=== PATIENT | female | born 1940 | race Caucasian/White ===

== ENCOUNTER 2018-01-14 10:25 | Emergency (ER) | payer MEDICARE, OTHER ==
--- NOTE | 2018-01-14 11:09 | CR ---
Clinical history: 77-year-old female chest pain Interpretation: Poor inspiratory effort morbidly obese female crowds and accentuates the lung marking s, particularly left base (atelectasis or underlying infiltrate). AP portable chest film otherwise unremarkable i.e. normal cardiac silhouette without cephalization of vascular flow, signs of alveolar edema or dependent pleural effusion. No lung mass, hilar lymphadenopathy or other focal lobar consolidation.
--- NOTE | 2018-01-14 11:10 | EDM.PDOC ---
ED HPI GENERAL MEDICAL PROBLEM - General Stated Complaint: CHEST PAIN Time Seen by Provider: 01/14/18 10:45 Source of Information: Reports: Patient History Limitations: Reports: No Limitations - History of Present Illness INITIAL COMMENTS - FREE TEXT/NARRATIVE: This 77 yo female patient reports to the ED via [facility] due to chest pain. The patient reports her symptoms started this morning at the time she woke up (0715) . The patient reports she has a burning pain that starts in the middle of her chest, goes to her back and up into her neck. The patient reports no similar symptoms in the past. The patient reports she has been evaluated several times for swallowing problems and is on an acid reducing medication that she takes daily. The patient reports that she did attempt to eat breakfast this morning, but had a difficult time eating and drinking this morning. Onset: Today Onset Date: 01/14/18 Onset Time: 07:15 Duration: Constant Location: Reports: Chest Quality: Reports: Ache, Burning Severity: Moderate Improves with: Reports: Other (sitting up) Worsens with: Reports: Other (lying down) Associated Symptoms: Reports: Chest Pain Epigastric Pain Score (Numeric/FACES): 7 - Related Data Allergies Allergy/AdvReac Type Severity Reaction Status Date / Time Sulfa (Sulfonamide Allergy Rash Verified 01/14/18 10:46 Antibiotics) Home Meds: Home Meds Budesonide [Budesonide EC] 3 mg PO DAILY 01/14/18 [History] Calcium Carbonate [Calcium] 1,200 mg PO DAILY 01/14/18 [History] Chrom Gita/Brindal Baum [Garcinia Cambogia Tablet] 2 tab PO DAILY 01/14/18 [ History] Furosemide [Lasix] 10 mg PO BID 01/14/18 [History] Inulin/Chromium Picolinate [Fiber Gummies] 5 mg PO DAILY 01/14/18 [History] Lisinopril 30 mg PO DAILY 01/14/18 [History] Loperamide [Imodium] 4 mg PO DAILY 01/14/18 [History] Magnesium 400 mg PO DAILY 01/14/18 [History] Omeprazole 20 mg PO BIDAC 01/14/18 [History] Potassium 99 mg PO DAILY 01/14/18 [History] amLODIPine [Norvasc] 5 mg PO DAILY 01/14/18 [History] atorvaSTATin [Lipitor] 40 mg PO BEDTIME 01/14/18 [History] predniSONE [Prednisone] 10 mg PO DAILY 01/14/18 [History] ED ROS GENERAL - Review of Systems Review Of Systems: ROS reveals no pertinent complaints other than HPI. ED EXAM, GENERAL - Physical Exam Exam: See Below Exam Limited By: No Limitations General Appearance: Alert, WD/WN, Moderate Distress Eye Exam: Bilateral Eye: EOMI, Normal Inspection, PERRL Ears: Normal External Exam, Normal Canal, Hearing Grossly Normal, Normal TMs Nose: Normal Inspection, Normal Mucosa, No Blood Throat/Mouth: Normal Inspection, Normal Lips, Normal Teeth, Normal Gums, Normal Oropharynx, Normal Voice, No Airway Compromise Head: Atraumatic, Normocephalic Neck: Normal Inspection Respiratory/Chest: No Respiratory Distress, Lungs Clear, Normal Breath Sounds, No Accessory Muscle Use, Chest Non-Tender Cardiovascular: Normal Peripheral Pulses, Regular Rate, Rhythm, No Gallop, No JVD, No Murmur, No Rub GI/Abdominal: Normal Bowel Sounds, Soft, Non-Tender, No Organomegaly, No Distention, No Abnormal Bruit, No Mass, Pelvis Stable (Female) Exam: Deferred Rectal (Female) Exam: Deferred Back Exam: Other (diffuse posterior neck pain ) Extremities: Normal Range of Motion, Non-Tender, Normal Capillary Refill, Pedal Edema (2+ bilateral) Neurological: Alert, CN II-XII Intact, Normal Cognition Psychiatric: Normal Affect, Normal Mood Skin Exam: Warm, Dry, Intact, Normal Color, No Rash Lymphatic: No Adenopathy Course - Vital Signs Last Recorded V/S: Last Vital Signs Temp 36.8 C 01/14/18 10:38 Pulse 82 01/14/18 10:38 Resp 18 01/14/18 10:38 BP 135/52 L 01/14/18 11:17 Pulse Ox 97 01/14/18 10:38 - Orders/Labs/Meds Orders: Active Orders 24 hr Category Date Time Status EKG Documentation Completion [RC] URGENT Care 01/14/18 10:26 Active UA W/MICROSCOPIC [URIN] Stat Lab 01/14/18 12:12 Ordered Labs: Laboratory Tests 01/14/18 01/14/18 01/14/18 Range/Units 10:47 10:47 10:47 WBC 19.4 H (5.0-10.0) 10^3/uL RBC 4.15 L (4.2-5.4) 10^6/uL Hgb 10.6 L (12.0-16.0) g/dL Hct 35.4 L (37.0-47.0) % MCV 85.3 (80-100) fL MCH 25.5 L (27.0-34.0) pg MCHC 29.9 L (33.0-35.0) g/dL Plt Count 283 (150-450) 10^3/uL Neut % (Auto) 70.1 (42.2-75.2) % Lymph % (Auto) 16.3 L (20.5-50.1) % [place] % (Auto) 12.0 H (2-8) % Eos % (Auto) 1.2 (1.0-3.0) % Baso % (Auto) 0.4 (0.0-1.0) % Add Manual Diff Yes Neutrophils % (Manual) 73 (42-75) % Band Neutrophils % 1 % Lymphocytes % (Manual) 20 (20-50) % Monocytes % (Manual) 6 (2-8) % PT (9.0-12.0) SEC INR (0.9-1.2) D-Dimer, Quantitative (0-400) ng/mL Sodium 141 (135-145) mmol/L Potassium 3.1 L (3.6-5.0) mmol/L Chloride 104 (101-111) mmol/L Carbon Dioxide 28.0 (21.0-31.0) mmol/L Anion Gap 12.1 BUN 24 H (7-18) mg/dL Creatinine 1.4 H (0.6-1.3) mg/dL Est Cr Clr Drug Dosing 24.94 mL/min Estimated GFR (MDRD) 37 BUN/Creatinine Ratio 17.14 Glucose 120 H (74-105) mg/dL Calcium 8.5 (8.4-10.2) mg/dl Total Bilirubin 0.8 (0.2-1.0) mg/dL AST 14 (10-42) IU/L ALT 11 (10-60) IU/L Alkaline Phosphatase 37 L (42-121) IU/L Creatine Kinase 49 (26-174) IU/L Creatine Kinase Index 3.7 H (0-2.4) % CK-MB (CK-2) 1.80 (0.4-4.7) ng/mL Troponin I < 0.02 (0.00-0.02) ng/ml Total Protein 6.6 L (6.7-8.2) g/dl Albumin 3.7 (3.2-5.5) g/dl Globulin 2.9 Albumin/Globulin Ratio 1.28 Urine Color (YELLOW) Urine Appearance (CLEAR) Urine pH (5.0-9.0) Ur Specific [place] (1.005-1.030) Urine Protein (NEGATIVE) Urine Glucose (UA) (NEGATIVE) Urine Ketones (NEGATIVE) Urine Occult Blood (NEGATIVE) Urine Nitrite (NEGATIVE) Urine Bilirubin (NEGATIVE) Urine Urobilinogen (0.2-1.0) mg/dL Ur Leukocyte Esterase (NEGATIVE) Urine RBC /HPF Urine WBC (0-5/HPF) /HPF Ur Epithelial Cells /HPF Urine Bacteria (0-FEW/HPF) /HPF Urine Mucus /LPF 01/14/18 01/14/18 Range/Units 10:47 12:12 WBC (5.0-10.0) 10^3/uL RBC (4.2-5.4) 10^6/uL Hgb (12.0-16.0) g/dL Hct (37.0-47.0) % MCV (80-100) fL MCH (27.0-34.0) pg MCHC (33.0-35.0) g/dL Plt Count (150-450) 10^3/uL Neut % (Auto) (42.2-75.2) % Lymph % (Auto) (20.5-50.1) % [place] % (Auto) (2-8) % Eos % (Auto) (1.0-3.0) % Baso % (Auto) (0.0-1.0) % Add Manual Diff Neutrophils % (Manual) (42-75) % Band Neutrophils % % Lymphocytes % (Manual) (20-50) % Monocytes % (Manual) (2-8) % PT 9.2 (9.0-12.0) SEC INR 0.9 (0.9-1.2) D-Dimer, Quantitative 455 H (0-400) ng/mL Sodium (135-145) mmol/L Potassium (3.6-5.0) mmol/L Chloride (101-111) mmol/L Carbon Dioxide (21.0-31.0) mmol/L Anion Gap BUN (7-18) mg/dL Creatinine (0.6-1.3) mg/dL Est Cr Clr Drug Dosing mL/min Estimated GFR (MDRD) BUN/Creatinine Ratio Glucose (74-105) mg/dL Calcium (8.4-10.2) mg/dl Total Bilirubin (0.2-1.0) mg/dL AST (10-42) IU/L ALT (10-60) IU/L Alkaline Phosphatase (42-121) IU/L Creatine Kinase (26-174) IU/L Creatine Kinase Index (0-2.4) % CK-MB (CK-2) (0.4-4.7) ng/mL Troponin I (0.00-0.02) ng/ml Total Protein (6.7-8.2) g/dl Albumin (3.2-5.5) g/dl Globulin Albumin/Globulin Ratio Urine Color Yellow (YELLOW) Urine Appearance Clear (CLEAR) Urine pH 6.0 (5.0-9.0) Ur Specific [place] 1.010 (1.005-1.030) Urine Protein Negative (NEGATIVE) Urine Glucose (UA) Negative (NEGATIVE) Urine Ketones Negative (NEGATIVE) Urine Occult Blood Trace-intact H (NEGATIVE) Urine Nitrite Negative (NEGATIVE) Urine Bilirubin Negative (NEGATIVE) Urine Urobilinogen 0.2 (0.2-1.0) mg/dL Ur Leukocyte Esterase Negative (NEGATIVE) Urine RBC 0-5 /HPF Urine WBC 0-5 (0-5/HPF) /HPF Ur Epithelial Cells Moderate H /HPF Urine Bacteria Few (0-FEW/HPF) /HPF Urine Mucus Few H /LPF Meds: Medications Discontinued Medications Generic Name Dose Route Start Last Admin Trade Name Freq PRN Reason Stop Dose Admin Al Hydroxide/Mg Hydroxide 30 ml 01/14/18 12:23 01/14/18 12:32 Gi Cocktail PO 01/14/18 12:24 30 ml ONETIME ONE Administration Aspirin 324 mg 01/14/18 11:11 01/14/18 11:16 Aspirin PO 01/14/18 11:12 324 mg ONETIME ONE Administration Ceftriaxone Sodium 1 gm 01/14/18 12:23 01/14/18 12:32 Rocephin IVPUSH 01/14/18 12:24 1 gm ONETIME ONE Administration - Re-Assessments/Exams Free Text/Narrative Re-Assessment/Exam: 01/14/18 12:45 The patient reports symptom relief after the GI cocktail. Departure - Departure Time of Disposition: 12:46 Disposition: Home, Self-Care 01 Condition: Fair Clinical Impression: Left lower lobe pneumonia Qualifiers: Pneumonia type: due to unspecified organism Qualified Code(s): J18.1 - Lobar pneumonia, unspecified organism GERD (gastroesophageal reflux disease) Qualifiers: Esophagitis presence: with esophagitis Qualified Code(s): K21.0 - Gastro- esophageal reflux disease with esophagitis Instructions: Gastroesophageal Reflux Disease, Adult, [id number], Community- Acquired Pneumonia, Adult, [id number] Forms: ED Department Discharge Care Plan Goals: The patient was advised of the examination, lab, EKG and x-ray results during the visit. The patient was given an oral dose of aspirin, a GI cocktail and an IV dose of Rocephin while in the ED. The patient was discharged with a script for Azithromycin (250 mg) #6 to take 2 by mouth on day 1 and 1 by mouth on days 2-5. The patient should continue with her current medications as prescribed. If the patient has any additional symptoms or concerns, the patient should follow- up with her primary care facility or return to the emergency department. - My Orders Last 24 Hours: My Active Orders 01/14/18 10:26 EKG Documentation Completion [RC] URGENT 01/14/18 12:12 UA W/MICROSCOPIC [URIN] Stat - Assessment/Plan Last 24 Hours: My Active Orders 01/14/18 10:26 EKG Documentation Completion [RC] URGENT 01/14/18 12:12 UA W/MICROSCOPIC [URIN] Stat
[2018-01-14] MEDS ORDERED: Aspirin 81 MG Tab.Chew PO ONE (11:11)
[2018-01-14 11:14] LABS: ANION GAP 12.1; CHLORIDE,CL 104 mmol/L (101-111); SODIUM,NA 141 mmol/L (135-145)
[2018-01-14] MEDS ORDERED: cefTRIAXone 1 GM Vial IVPUSH ONE (12:23)
[2018-01-14] MEDS ORDERED: GI Cocktail Oral Solution 30 ML PO ONE (12:23)
--- NOTE | 2018-01-17 14:03 | EKG ---
01/14/2018 - CAREY TIERNEY - TIME: 10:38 p.m. FINDINGS: Sinus rhythm at 84, borderline left axis deviation. Nonspecific T- wave abnormalities in bilateral leads. [facility] /[id number]
== END 2018-01-14 13:20 | disposition home or self-care (01) ==
LOC: DL.ED 10:25
DX: J18.9 Pneumonia, unspecified organism (principal); K21.0 Gastro-esophageal reflux disease with esophagitis; Z88.2 Allergy status to sulfonamides; Z79.4 Long term (current) use of insulin; Z79.899 Other long term (current) drug therapy
CPT/HCPCS: 36415; 71045; 80053; 81001; 82550; 82553; 84484; 85025; 85379; 85610; 93005; 93010; 96374; 99285; A9270; J0696; 99284